=== PATIENT | male | born 1990 | race Caucasian/White ===

== ENCOUNTER 2022-07-16 14:09 | Outpatient (REF) | payer MEDICAID, SELFPAY ==
[2022-07-17 12:36] LABS: COVID-19 RT-PCR UVMMC Result Negative (Negative)
== END 2022-07-16 14:10 | disposition home or self-care (01) ==
LOC: LBN 14:09
PROVIDERS: Visit Provider Physician Assistant Medical
DX: Z20.822 Contact with and (suspected) exposure to COVID-19 (principal); R19.7 Diarrhea, unspecified
CPT/HCPCS: U0003

== ENCOUNTER 2022-10-16 11:18 | Emergency (ER) | payer MEDICAID, SELFPAY ==
[2022-10-16 11:42] VITALS: BP 129/84; PULSE 83; RESP 16; TEMP 36.8; O2SAT 99
--- NOTE | 2022-10-16 12:27 | DI.RAD_ITS ---
Exam(s) XR HAND LT COMPLETE EXAM: XR HAND LT COMPLETE CLINICAL HISTORY: thumb injury TECHNIQUE: COMPARISON: No exams were available for comparison FINDINGS: Three views were obtained. There is no evidence of acute fracture or dislocation. IMPRESSION: RADIATION DOSE DELIVERED: Total DLP
--- NOTE | 2022-10-16 13:25 | DI.VRAD_ITS ---
PROCEDURE INFORMATION: Exam: XR Left Hand Exam date and time: 10/16/2022 1:10 PM Age: 32 years old Clinical indication: Other: Thumb injury TECHNIQUE: Imaging protocol: Radiologic exam of the Left hand. Views: 3 or more views. COMPARISON: No relevant prior studies available. FINDINGS: Bones/joints: Joint space narrowing in the DIP joint of the long finger consistent with degenerative changes. There is no evidence of acute fracture.There is no evidence of malalignment or dislocation. Soft tissues: Normal. IMPRESSION: There is no evidence of acute fracture.There is no evidence of malalignment or dislocation. Dictated and Authenticated by: Sheldon Emerson MD. Ordering:JESSE Gamboa MD
--- NOTE | 2022-10-16 14:05 | ED.GENADUL_ITS ---
Discharge Plan Disposition Patient Disposition: Home Condition: Stable Discharge Details Clinical Impression: Injury of thumb, left Primary Care Provider: None,None ED Provider: Cooper Infante Home Meds and New Rx's Prescriptions: Continued mirtazapine 30 MG tablet 30 mg PO .HS ibuprofen 800 MG tablet 800 mg PO TID PRN Discharge Instructions Additional Instructions: Thumb x-ray is unremarkable. Wear splint as needed, advance activity as tolerated. [id number] Tylenol and/or Motrin as directed for discomfort. Rest, elevate, cool compresses every 2 hours for 20 minutes. Please watch for new or worsening symptoms and return to the ER for any concerns. If symptoms are lingering for 1 week with conservative measures then please follow-up with your primary care provider Medical Decision Making 32-year-old gentleman, [id number], presents for a left thumb injury that he states that he possibly sustained at work when putting a plow on a truck or potentially at home when moving some heavy objects on Monday. Denies any obvious injury. Clinically he appears well, nontoxic, no deformity. Neuro, vascular, tendon intact. Plan to obtain x-ray and reassess X-ray unremarkable Discussed x-ray findings with patient. Thumb spica splint applied Standard discharge and return precautions were provided. Patient understands, is agreeable to this plan, and has no additional questions or concerns upon discharge. This documentation was generated using Vastariation system, please disregard any oddities of phrase or misspellings. Medical Records Medical records reviewed: Yes I reviewed the patient's medical records. Imaging Data Radiologic Study: Attestation: I personally reviewed and interpreted this imaging study as f shari: Imaging: X-Ray Radiologist's impression: Exam(s) XR HAND LT COMPLETE EXAM: XR HAND LT COMPLETE CLINICAL HISTORY: thumb injury TECHNIQUE: COMPARISON: No exams were available for comparison FINDINGS: Three views were obtained. There is no evidence of acute fracture or dislocation. Sign Out No HPI General Mode of arrival: ambulatory . Date/Time Provider Initiated Documentation: 10/16/22 12:27 . Limitations to Documentation: no limitations . Information obtained by: patient . History of Present Illness 32 year old M presents to the emergency department with the chief complaint of L thumb pain, described as moderate, with intensity rated at 5. Quality is described as aching, and is localized to the left and upper extremity. Patient reports no radiation. Patient started experiencing this day(s) (3) and it has been constant. Immobilization improves symptom(s), Movement worsens symptoms . Patient notes no other symptoms.. Patient did receive the following treatments prior to arrival, none Related Data Home Medications Medication Instructions Recorded Confirmed mirtazapine 30 mg tablet 30 mg PO .HS 06/11/13 10/16/22 ibuprofen 800 mg tablet 800 mg PO TID PRN 10/16/22 10/16/22 Allergies Allergy/AdvReac Type Severity Reaction Status Date / Time No Known Allergies Allergy Unverified 10/16/22 12:53 General Stated Complaint: Orthopedic WILMA: 4 Review of Systems Constitutional Constitutional: Denies weakness Musculoskeletal Musculoskeletal: Denies deformity, Reports arthralgias, Denies numbness, Reports stiffness and Denies tingling Integumentary/Breasts Skin/Breast: Denies rash Neurologic Neurologic: Denies numbness, Denies tingling and Denies weakness PFSH All Active Problems Injury of thumb, left (Acute) Social History Smoking/Tobacco Use Status: Former Tobacco Use Smoking risk assessment performed?: Yes Alcohol Intake: never Drug use: Current Sobriety Do you feel safe at home: Yes Do you feel safe in your relationship?: Yes Exam Const General: cooperative, healthy appearing, comfortable and no acute distress Orientation: alert and awake [facility] Head: normal to inspection, normocephalic and atraumatic Eyes Conjunctivae: conjunctivae normal Neck Neck: normal visual inspection, trachea midline and supple Resp Effort & Inspection: normal respiratory effort and able to speak in complete sentences Cardio Rate: regular rate Rhythm: regular rhythm Skin General skin exam: no rashes or lesions noted Neuro General: patient alert, patient awake, moves all extremities and no focal motor deficits Cognition: normal cognition Speech: speech normal Gait: normal gait Motor: muscle tone normal throughout Sensory Exam: no sensory deficits noted Extrem General: full ROM and capillary refill normal Hand/finger images: 1. Diffuse tenderness. No obvious swelling or ecchymosis. Skin is intact. N euro, vascular, tendon intact. Normal capillary refill and radial pulse Psych Appearance: grossly normal Mental Status: mental status grossly normal Course Vital Signs Vital signs: Vital Signs Temperature 36.8 C 10/16/22 11:42 Pulse 83 10/16/22 11:42 Respiratory Rate 16 10/16/22 11:42 Blood Pressure 129/84 10/16/22 11:42 Pulse Oximetry 99 10/16/22 11:42 Temperature 36.8 C 10/16/22 11:42 Temperature Source Oral 10/16/22 11:42 Pulse 83 10/16/22 11:42 Respiratory Rate 16 10/16/22 11:42 Respiratory Effort Non-Labored 10/16/22 12:52 Blood Pressure 129/84 10/16/22 11:42 Blood Pressure Position Sitting 10/16/22 11:42 Pulse Oximetry 99 10/16/22 11:42 Oxygen Delivery Method Room Air 10/16/22 11:42 Oxygen Flow Rate 0 10/16/22 11:42 Pain Level 10 10/16/22 11:42
== END 2022-10-16 14:21 | disposition home or self-care (01) ==
PROVIDERS: Emergency Provider Physician Assistant
DX: S69.92XA Unspecified injury of left wrist, hand and finger(s), initial encounter (principal); X50.0XXA Overexertion from strenuous movement or load, initial encounter
CPT/HCPCS: 29130; 99283; 73130; 99282

== ENCOUNTER 2023-04-06 12:54 | Emergency (ER) | payer MEDICAID, SELFPAY ==
[2023-04-06 12:59] VITALS: BP 133/84; PULSE 102; RESP 15; TEMP 37.1; O2SAT 98
--- NOTE | 2023-04-06 13:45 | RT.EKG_ITS ---
APPROVED REPORT Exam: Resting ECG Reason for Exam: seizure? Patient Location: E HR:69 bpm ECG Measurements Heart Rate 69 AXIS HI 142 P 56 QRSd 85 QRS -19 QT 361 T 33 QTc 387 Conclusion Sinus rhythm...normal P axis, V-rate 60- 99 Consider anteroseptal infarct...Q >30mS, dimin R, V1-V2. Sinus. No STEMI. I have reviewed and interpreted ECG and agree with software generated interpretation.
--- NOTE | 2023-04-06 14:15 | DI.CT_ITS ---
Exam(s) CT HEAD WO EXAM: CT HEAD WO CLINICAL HISTORY: New onset seizure. TECHNIQUE: Imaging Protocol: Axial computed tomography images with coronal and sagittal reformatted images were created and reviewed COMPARISON: No exams were available for comparison FINDINGS: There are no skull fractures. There is no fluid in the visualized paranasal sinuses. There is no evidence of intracranial hemorrhage, mass effect, or shift of midline structures. There are no extra-axial fluid collections. The ventricles are not enlarged or shifted and there is no blo od within the ventricular system nor within the basal cisterns. IMPRESSION: No acute intracranial findings on this noninfused CT scan of the brain. Given the history here if clinically indicated follow-up MRI can be performed RADIATION DOSE DELIVERED: 761.02mGy.cm Total DLP DATA REPOSITORY: All CT scans at this facility are submitted to the National Radiology Data Registry (NRDR) Dose Index Registry (DIR) with the [employer] ([employer]). RADIATION OPTIMIZATION: All CT scans at this facility use at least one of these dose optimization te chniques: automated exposure control; mA and/or kV adjustment per patient size (includes targeted exa ms where dose is matched to clinical indication); or iterative reconstruction.
[2023-04-06 14:48] LABS: Abs Immature Grans 0.04 10^3/uL (0.0-0.06); Absolute Basophil Count 0.07 10^3/uL (0.0-0.2); Absolute Eosinophil Count 0.23 10^3/uL (0.0-0.7); Absolute Lymphocyte Count 3.71 10^3/uL (1.2-3.4); Absolute Monocyte Count 0.92 10^3/uL (0.1-0.8); Absolute Neutrophil Count 4.22 10^3/uL (1.2-6.7); Basophils % 0.8; Eosinophils % 2.5; HCT 48.2 % (40.0-50.0); HGB 16.5 g/dL (13.5-17.5); Immature Grans % 0.4; Lymphocytes % 40.4; MCH 29.5 pg (27.0-33.0); MCHC 34.2 % (32.0-36.0); MCV 86 fL (80-95); MPV 9.2 fL (8.0-11.0); Neutrophils % 45.9; Platelet Count 350 10^3/uL (130-400); RDW 13.6 % (11.8-14.1); RDW-SD 42.7 fL; WBC 9.19 10^3/uL (4.4-10.8)
--- NOTE | 2023-04-06 14:51 | ED.GENADUL_ITS ---
Discharge Plan Disposition Patient Disposition: Home Discharge Details Clinical Impression: Seizure Primary Care Provider: Alfonso Masters ED Provider: Bonifacio Rodríguez Home Meds and New Rx's Prescriptions: New levetiracetam [Keppra] 500 mg tablet 500 mg PO BID Qty: 60 0RF Continued mirtazapine 30 MG tablet 30 mg PO .HS dextroamphetamine-amphetamine [Adderall] 20 mg Tablet 20 mg PO TID ibuprofen 800 MG tablet 800 mg PO TID PRN Discharge Instructions Instructions: New-Onset Seizure in Adults (ED) Additional Instructions: Please follow the seizure precautions as discussed which includes no operating of heavy machinery, dangerous equipment, motor vehicles, firearms etc. Please take medication as prescribed and follow-up with neurology for further outpatient work-up. If you develop any new or significant worsening of symptoms return to the emergency department immediately for reassessment. Stand Alone Forms: Seizure Precautions-New Parent Referrals: [facility] [Provider Group] (The office will contact you for arrangement of follow-up appointment. If you do not hear from them in the next week please contact their office.) Discharge Data Discharge Date/Time-TO BE ENTERED AT DEPARTURE: 04/06/23 16:07 Medical Decision Making Patient presenting to emergency for seizure-like activity with no precipitating factor. Patient's significant other witnessed event which patient had reportedly three 5-minute seizures with these being described as snoring respirations, eyes rolling back and head, and shaking of arms and legs with postictal period. Patient has no seizure history denies any drug use denies head injury denies change in medications or new medications. Physical exam unremarkable. Labs unremarkable, CT unremarkable. Spoke with Dr. Lepe who stated patient could follow-up on outpatient basis for EEG and MRI. Pending further neurology work-up patient to be placed upon Keppra with loading dose of the 1000 mg given here and patient to start on Keppra twice daily until following up with neurology. Driving precautions were discussed with patient. After discussion of diagnosis and plan of care patient has no further needs, questions, or concerns and states clear understanding to return to the emergency department for any worsening symptoms. This documentation was generated using Android App Review Sourceation system, please disregard any oddities of phrase or misspellings. Imaging Data Radiologic Study: Attestation: I personally reviewed and interpreted this imaging study as follows: Imaging: CT Scan Radiologist's impression: Exam(s) CT HEAD WO EXAM: CT HEAD WO CLINICAL HISTORY: New onset seizure. TECHNIQUE: Imaging Protocol: Axial computed tomography images with coronal and sagittal reformatted images were created and reviewed COMPARISON: No exams were available for comparison FINDINGS: There are no skull fractures. There is no fluid in the visualized paranasal sinuses. There is no evidence of intracranial hemorrhage, mass effect, or shift of midline structures. There are no extra-axial fluid collections. The ventricles are not enlarged or shifted and there is no blood within the ventricular system nor within the basal cisterns. IMPRESSION: No acute intracranial findings on this noninfused CT scan of the brain. Given the history here if clinically indicated follow-up MRI can be performed Lab Data Lab results reviewed: Yes I reviewed the patient's lab results. HPI General Mode of arrival: ambulatory . Date/Time Provider Initiated Documentation: 04/06/23 13:36 . Limitations to Documentation: no limitations . Information obtained by: patient and RN notes reviewed . History of Present Illness 32 year old M presents to the emergency department with the chief complaint of Seizure, described as moderate, Patient started experiencing this day(s) (1) and it has been intermittent and now resolved. No relieving factors improve symptom(s), No exacerbating factors reported . Patient notes no other symptoms.. Patient did receive the following treatments prior to arrival, none Related Data Home Medications Medication Instructions Recorded Confirmed mirtazapine 30 mg tablet 30 mg PO .HS 06/11/13 10/16/22 ibuprofen 800 mg tablet 800 mg PO TID PRN 10/16/22 10/16/22 dextroamphetamine-amphetamine 20 20 mg PO TID 04/06/23 04/06/23 mg tablet (Adderall) levetiracetam 500 mg tablet 500 mg PO BID #60 tabs 04/06/23 (Keppra) Previous Rx's Medication Instructions Recorded levetiracetam 500 mg tablet 500 mg PO BID #60 tabs 04/06/23 (Keppra) Allergies Allergy/AdvReac Type Severity Reaction Status Date / Time No Known Allergies Allergy Unverified 04/06/23 13:02 General Stated Complaint: Seizure WILMA: 3 Review of Systems Constitutional Constitutional: Denies body ache(s), Denies chills, Reports fatigue, Denies fever(s), Reports headache(s), Reports lethargy and Reports malaise Eyes Eyes: Denies change in vision and Denies loss of vision ENT Ears, Nose, Mouth, and Throat: Denies dizziness and Reports headache(s) Cardiovascular Cardiovascular: Denies chest pain, Denies syncope and Denies dyspnea Respiratory Respiratory: Denies dyspnea Gastrointestinal Gastrointestinal: Reports nausea and Reports vomiting Musculoskeletal Musculoskeletal: Denies myalgias, Denies numbness and Denies tingling Integumentary/Breasts Skin/Breast: Denies rash Neurologic Neurologic: Reports as per HPI, Denies dizziness, Denies syncope, Reports headache(s), Denies localized weakness, Denies loss of vision, Denies numbness, Reports seizure-like activity, Denies sensory deficit, Denies tingling and Denies paresthesias Endocrine Endocrine: Reports fatigue PFSH All Active Problems (Updated 04/06/23 @ 15:45 by Bonifacio Rodríguez NP) Seizure (Acute) Social History Smoking/Tobacco Use Status: Current every day Tobacco Type: cigarettes Smoking risk assessment performed?: Yes Alcohol Intake: current Alcohol Intake frequency: a few times a month Alcohol type: other Drug use: Current Sobriety Do you feel safe at home: Yes Do you feel safe in your relationship?: Yes Exam Const General: cooperative, healthy appearing, no acute distress and well groomed Orientation: alert, awake and oriented x3 HENMT Head: normal to inspection Ears: hearing grossly normal bilaterally and TM's normal bilaterally Mouth: oral mucosae normal and moist mucous membranes Throat: posterior oropharynx normal Eyes Visual Valdez: normal visual valdez by confrontation Alignment and Position: alignment normal Periorbital: periorbital findings normal Eyelids: eyelids normal Sclera: sclerae normal Cornea: corneas normal Pupils: PERRL EOM: EOM intact bilaterally Neck Neck: normal visual inspection, full ROM, no lymphadenopathy and no meningeal signs Resp Effort & Inspection: normal respiratory effort and able to speak in complete sentences Auscultation: clear to auscultation bilaterally Cardio Rate: regular rate Rhythm: regular rhythm Heart Sounds: S1 normal and S2 normal Neuro General: patient alert, patient awake, patient oriented x3, gait normal, tone normal, moves all extremities, CN's II-XI intact bilaterally and not confused Cognition: normal cognition Speech: speech normal Motor: muscle tone normal throughout, strength 5/5 throughout, no pronator drift, no movement abnormalities noted and no fasciculations Sensory Exam: no sensory deficits noted Coordination: [id number] test normal and Does not sway with eyes open Course Vital Signs Vital signs: Vital Signs Temperature 37.1 C 04/06/23 12:59 Pulse 102 H 04/06/23 12:59 Respiratory Rate 15 04/06/23 12:59 Blood Pressure 133/84 04/06/23 12:59 Pulse Oximetry 98 04/06/23 12:59 Temperature 37.1 C 04/06/23 12:59 Temperature Source Temporal Artery Scan 04/06/23 12:59 Pulse 102 H 04/06/23 12:59 Respiratory Rate 15 04/06/23 12:59 Respiratory Effort Normal 04/06/23 13:23 Respiratory Depth Normal 04/06/23 13:23 Respiratory Pattern Normal 04/06/23 13:23 Blood Pressure 133/84 04/06/23 12:59 Blood Pressure Position Sitting 04/06/23 12:59 Pulse Oximetry 98 04/06/23 12:59 Oxygen Delivery Method Room Air 04/06/23 12:59 Oxygen Flow Rate 0 04/06/23 12:59 Pain Level 1 04/06/23 12:59 Lab/Test Results Lab/Test Results: Laboratory Tests Range/Units 04/06/23 14:40 WBC (4.4-10.8) 10^3/uL 9.19 RBC (4.36-5.78) 10^6/uL 5.60 Hgb (13.5-17.5) g/dL 16.5 Hct (40.0-50.0) % 48.2 MCV (80-95) fL 86 MCH (27.0-33.0) pg 29.5 MCHC (32.0-36.0) % 34.2 RDW (11.8-14.1) % 13.6 Plt Count (130-400) 10^3/uL 350 MPV (8.0-11.0) fL 9.2 Immature Gran % 0.4 Neutrophils % 45.9 Lymphocytes % 40.4 Monocytes % 10.0 Eosinophils % 2.5 Basophils % 0.8 Nucleated RBC % (0.0-0.3) % 0.0 Absolute Neutrophils (1.2-6.7) 10^3/uL 4.22 Absolute Lymphocytes (1.2-3.4) 10^3/uL 3.71 H Absolute Monocytes (0.1-0.8) 10^3/uL 0.92 H Absolute Eosinophils (0.0-0.7) 10^3/uL 0.23 Absolute Basophils (0.0-0.2) 10^3/uL 0.07 PAWSS Have you Been Recently Intoxicated or Drunk Within the Last 30 days?: No Have you Ever Experienced Previous Episodes of Alcohol Withdrawal?: No Have you ever Experienced Withdrawal Seizures?: No Have you ever Experienced Delirium Tremens(DT)s?: No Have you ever undergone Alcohol Rehabilitation Treatment (i.e, inpt ot outpatient treatment programs)?: No Have you ever Experienced Blackouts?: No Have you ever Combined Alcohol with other Downers within the last 90 days?: No Have you ever Combined Alcohol with any other Substance of Abuse during the last 90 days?: No Result: 0
[2023-04-06 15:04] LABS: ALT 24 U/L (16-63); AST 15 U/L (15-37); Albumin 3.6 g/dL (3.4-5.0); Alkaline Phosphatase 80 U/L (46-116); Anion Gap 6.7 mmol/L (3-11); BUN 13 mg/dL (7-18); Bilirubin, Total 0.6 mg/dL (0.2-1.0); CO2 28.3 mmol/L (21.0-32.0); Calcium 8.8 mg/dL (8.5-10.1); Chloride 103 mmol/L (98-107); ETHANOL BLOOD < 3.0 mg/dL (<10); Estimated GFR 103.19 (mL/min/1.73m2); Glucose 101 mg/dL (74-106); Magnesium 1.9 mg/dL (1.8-2.4); Potassium 4.2 mmol/L (3.5-5.1); Sodium 138 mmol/L (136-145); Total Protein 7.3 g/dL (6.4-8.2); Troponin I < 50 ng/L (<or=60)
[2023-04-06 15:17] LABS: *AMPHETAMINES SCREEN URINE Negative (Negative); *BARBITURATES SCREEN URINE Negative (Negative); *BENZODIAZEPINES SCREEN URINE Negative (Negative); Cannabinoids THC Negative (Negative); Cocaine Screen,Urine Negative (Negative); METHADONE URINE SCREEN Negative (Negative); OPIATES URINE SCREEN Negative (Negative)
[2023-04-06 15:18] LABS: Tricyclic Antidepressants Negative (Negative)
--- NOTE | 2023-04-06 15:44 | NUR.NOTE ---
Nursing Note: f/up faxed to neuro
[2023-04-06] MEDS: levETIRAcetam 500 MG TAB (16:07)
== END 2023-04-06 16:07 | disposition home or self-care (01) ==
PROVIDERS: Physician Assistant; Emergency Provider Nurse Practitioner Family; PCP Family Medicine
DX: G40.909 Epilepsy, unspecified, not intractable, without status epilepticus (principal)
CPT/HCPCS: 80053; 80307; 93005; 99284; 70450; 80320; 83735; 84484; 85025; 93010